=== PATIENT | female | born 1935 | race Caucasian/White ===

== ENCOUNTER → 2017-06-03 15:46 | Outpatient (CLI) | payer MEDICARE, SELFPAY ==
--- NOTE | 2017-06-03 15:54 | MM_ITS ---
MM Dig screening mamm BI w/CAD CAD Screening ORDERING PHYSICIAN : Yung Major MD PATIENT AGE: 82 years GENDER: Female COMPARISON: . Left mammogram from this facility 05/06/2016 & in March 2016 There is also right breast stereotactic biopsy performed May 2016 which positive for additional tumor Bilateral mammogram from [facility] January 2015 INDICATION: A 82-year-old Breast cancer on right. Follow-up right lumpectomy and radiation right breast cancer previous biopsy left breast Sister with breast cancer in her 80s postmenopausal TECHNIQUE: Standard CC and MLO images were obtained. R2 CAD reviewed. FINDINGS: RIGHT BREAST:Diffuse severe skin thickening reflect interval post radiation. Significant change in appearance since May 2016 . Areas of residual fibroglandular density in the right at the retroareolar region and lateral left breast observed. Right breast is smaller following prior surgical lumpectomy surgical LEFT BREAST:The patient had a stereotactic biopsy of the small grouping of calcifications in the upper outer quadrant of the left breast April 2016. A metallic marker is seen at this site.. Labeled X... Today there is a focal area of density at this biopsy site which is most likely related to the biopsy process.. it measures up to 11 x 7 mm width stellate margin & is best seen on cc view but again more likely reflect biopsy. Just posterior this, on one of the cc views, is additional questionable area labeled Y with mild architectural distortion question here as well.. This could also still be related biopsy, but given the combination of features particular in this patient, would suggest she return for spot CC rolled cc views of the left breast along with MLO spot view.. These should be performed the patient's convenience as we are basically establish a baseline for comparison at this area of architectural change in irregularity which I believe is more likely related to biopsy.. There is also mild diffuse accentuation of glandular elements throughout the left breast which may be related to therapy or mild edematous state . Possibly some the edema from the right breast radiation may span the chest mildly affecting left breast? . We again see numerous coarse calcifications throughout the breast most likely reflecting secretory calcifications routine follow-up of the adequate here IMPRESSION: LEFT BREAST. Previous stereotactic biopsy upper-outer quadrant.-This Associated with focal area of stellate density-most likely due to biopsy process itself. This area labeled X. However would recommend additional Spot Views Left Breast to further evaluate this area Labeled X as well also evaluate area of architectural irregularity just posterior to this on cc view Labeled Y. There seems to be overall increased density of fibroglandular elements throughout the left breast also noted, which may reflect current treatment vs mild edematous state? RIGHT BREAST interval lumpectomy & radiation since May 2016 mammogram exam. Now marked, pronounced diffuse skin thickening reflecting postradiation change.. No additional views required on right breast at this time. Routine Follow-up adequate on right BI-RADS Category: 0 Need Additional Imaging Evaluaiton. RECOMMENDED FOLLOW-UP: IMM - IMMEDIATE FOLLOW-UP RECOMMENDED Spot views upper quadrant left breast with septal ultrasound (A letter has been sent to the patient regarding results of the study.)
== END ==
PROVIDERS: Family Provider Family Medicine; PCP Family Medicine; Visit Provider Internal Medicine
DX: Z12.31 Encounter for screening mammogram for malignant neoplasm of breast (principal)
CPT/HCPCS: 77067

== ENCOUNTER → 2017-06-28 13:51 | Outpatient (CLI) | payer MEDICARE, SELFPAY ==
--- NOTE | 2017-06-28 13:59 | MM_ITS ---
MM Dig mamm DX unilat LT CAD CAD Screening ORDERING PHYSICIAN : Kadeem Mar MD PATIENT AGE: 82 years GENDER: Female COMPARISON: Previous mammograms: March 2016. April 2016 in recent screening study from June 03, 2017 INDICATION: Previous right breast cancer. Further evaluation of minimal density and calcifications TECHNIQUE: Standard CC and MLO images were obtained. R2 CAD reviewed. FINDINGS: LEFT BREAST: Slight progression of dense coarse calcifications seen at the left breast,. On these become more evident since 2017 although more likely benign there is progression and slight branching of one or 2 of the calcifications here along with some smaller calcifications in the same area.. Although these are more likely benign calcifications, Given this patient's increased risk to be cautious the stereotactic biopsy would be warranted. Follow-up in 6 months would be a alternative as I suspect these are more likely benign. There is metallic MicroMark or from previous stereotactic biopsy of small removed clustered of microcalcifications at the left breast.(These shown to be fibrocystic calcifications from that April 2016 stereotactic biopsy]. . There is some mild architectural distortion in this post biopsy which h becomes less evident on today's spot views. IMPRESSION: 1. Left breast Slight progression of fairly coarse calcifications left retroareolar region., & Extending towards upper outer quadrant.. These are most likely benign calcifications but they have shown slight progression with slight additional linear & a branching form.; Along with some tiny new calcifications as well. Although more likely benign would suggest stereotactic biopsy in this high-risk patient to be cautious to definitively evaluate. 2. Area of density at the previous biopsy site is less concerning, on these additional views. Follow up will be adequate for the post stereotactic biopsy density changes. BI-RADS Category: 4 minimal Suspicious Abnormality-Biopsy Considered RECOMMENDED FOLLOW-UP: BIO - BIOPSY RECOMMENDED Stereotactic of of progressive but more likely benign calcifications left breast. (A letter has been sent to the patient regarding results of the study.)
== END ==
PROVIDERS: Family Provider Family Medicine; PCP Family Medicine; Visit Provider Surgery
DX: R92.8 Other abnormal and inconclusive findings on diagnostic imaging of breast (principal); Z85.3 Personal history of malignant neoplasm of breast
CPT/HCPCS: 77065

== ENCOUNTER → 2017-07-28 10:03 | Outpatient (CLI) | payer MEDICARE, SELFPAY ==
--- NOTE | 2017-07-28 | MM_ITS ---
. . MM stereotactic loc LT Stereotactic biopsy left breast with clip placement . . Limited focused H&P: HISTORY: Lumpectomy and radiation right breast for 2017 breast cancer.. Recent mammogram showed slight Progressive of dense most likely benign but variable calcifications & in view of contralateral breast cancer biopsy suggested. Limited Physical Exam performed by Dr. Schaffer. Lungs: Clear.Heart: Regular rate and rhythm. Mental status: Slight Somnolent during but baseline at end of the exam as per staff and Daughter STEREOTACTIC BIOPSY LEFT BREAST, with clip placement: The patient was given 1 mg of Xanax, Lortab 5 mg, and analgesia and minor sedation. The patient was placed on the stereotactic table and the abnormality was localized in the most appropriate projection. The breast was prepped in the routine manner, with sterile prep and the overlying skin anesthetized. A 3 to 4 mm skin incision was performed and the 9 gauge sorus vacuum-assisted core biopsy needle was advanced to the region of the calcification. Pre-& post fire images were obtained. After adequate positioning relative to the calcifications was ensured, multiple biopsies were obtained in the region of the calcifications specifically. The core biopsies obtained were sent for specimen mammography. The needle was repositioned and additional calcifications were removed. A patient was becoming uncomfortable to this point and with fairly good sampling of calcifications additional calcifications were not pursued.. Significant Calcifications were indeed identified on the specimen mammogram, thus procedure was terminated. The patient was somewhat somnolent following procedure. She was very difficult to position in her baseline state and even more immediately post stereo biopsy. Suggest that the patient obtain a follow-up left mammogram in 6-8 months to demonstrate stability of these and other calcifications as well as other I believe stable densities left breast The patient tolerated the procedure well without complications. Specimen was sent for pathologic analysis.. Routine follow-up phone call to patient is to be performed as well. A tiny titanium nonferromagnetic MicroMark was positioned through the mammotome needle into the biopsy site. IMPRESSION: 1. Successful stereotactic vacuum-assisted core biopsy a significant portion of of the calcifications at left breast .. 2. Successful placement of a titanium metal MicroMark. 3. No noted complications. SPECIMEN RADIOGRAPH: The mammographically evident calcifications from the prior study are currently evident within the Raymond dish and within the specimens obtained during mammotome procedure. This is considered an adequate specimen and the procedure was terminated. IMPRESSION: Successful removal of adequate sampling of calcifications of concern. It pathology report demonstrates benign findings. ====== PATHOLOGY REPORT.: . Negative for atypical hyperplasia. Negative for malignancy Benign Fibrocystic changes with hyalinized fibrosis and microcalcifications Added note: Patient difficult to position, and questionably tolerated mammogram postbiopsy. Thus we opted not to pursue post biopsy mammography immediately poststereotactic thus suggest follow-up bilateral mammogram in 6-8 months: to further evaluate the postbiopsy clip and other features LEFT BREAST; and to further confirm stability at the post radiation postlumpectomy RIGHT BREAST.. --SUMMARY-- Today's Stereotactic biopsy removed significant portion of the irregular variable dense calcifications from lateral retroareolar region. Anticipated benign calcifications but with given history biopsy warranted Pathology report confirms benign findings/benign calcifications from today's
== END ==
PROVIDERS: Family Provider Family Medicine; PCP Family Medicine; Visit Provider Surgery
DX: R92.8 Other abnormal and inconclusive findings on diagnostic imaging of breast (principal)
CPT/HCPCS: 19081; 77065; 88305

== ENCOUNTER → 2018-02-07 15:02 | Outpatient (CLI) | payer MEDICARE, SELFPAY ==
--- NOTE | 2018-02-07 15:04 | MM_ITS ---
MM Dig mamm BI DX w/CAD Ordering Physician: Kadeem Mar MD Patient Age: 83 years: Female HISTORY: ITS.REASON: breast cancer . Stereotactic biopsy on left and june 2017 TECHNIQUE: Left breast CC and MLO views along with spot 90 degree, MLO and cc views. Also a right cc view included. COMPARISON :June 03, 2017 & July 28, 2017. FINDINGS Studies initially reviewed by Dr. Henley and now dictated by Dr. Schaffer. LEFT BREAST . The patient has had 2 previous stereotactic biopsy left breast. The most recent in June. Stable minimal density about older metallic marker towards superior left breast unchanged & can be followed. . The more recent june 2017 c placed a barrel-shaped metallic marker at the inferior aspect of the biopsy site disc below calcifications. No new findings. Some calcifications have been removed since May reflecting interval biopsy. There are some dense benign calcifications at a few possible secretory calcifications. . No significant new finding. On left. .. Bilateral mammogram in 6 months to resume annual schedule adequate. RIGHT BREAST Very prominent diffuse skin thickening at the right breast again noted & compatible with post radiation changes. No significant new findings stable benign-appearing calcification lateral right breast. Only a single cc view was performed on the right breast today for some reason not stated. Thus Suggest resuming complete annual bilateral mammogram in 6 months IMPRESSION: 1. LEFT BREAST.. No significant new findings . Two Previous percutaneous biopsy sites noted Slight Decreased number of these these dense and benign-appearing calcifications including possible secretory calcifications Central portion breast. Subsequent to the June2017 biopsy. 2. RIGHT BREAST. A limited single cc view right breast performed today. Prominent diffuse skin thickening reflecting postradiation changes. No new findings versus May 2017. . BI-RADS 2 stable benign appearing observations RECOMMEND: bilateral mammogram 6 months to resume annual mammogram schedule.
== END ==
PROVIDERS: PCP Family Medicine; Visit Provider Surgery
DX: C50.911 Malignant neoplasm of unspecified site of right female breast (principal)
CPT/HCPCS: 77066

== ENCOUNTER → 2018-08-29 13:29 | Outpatient (CLI) | payer MEDICARE, SELFPAY ==
--- NOTE | 2018-08-29 14:40 | MM_ITS ---
MM Dig screening mamm BI w/CAD CAD Screening COMPARISON: Digital mammograms with CAD 02/07/2018 and 03/09/2016 INDICATION: There is a history of recent lumpectomy right breast with follow-up radiation therapy. There is a history of breast cancer patient's sister diagnosed in her 80s. TECHNIQUE: Standard CC and MLO images were obtained. R2 CAD reviewed. FINDINGS: The right breast is smaller than left showing marked and diffuse skin thickening both findings consistent with previous lumpectomy and follow-up radiation therapy. Scattered fibronodular densities are seen throughout both breasts. Scattered benign appearing microtest stations in each breast. There is no new or suspicious lesion in either breast. There is a fatty replaced node left axilla. IMPRESSION: Stable post left lumpectomy and radiation changes right breast and stable heterogenic breast density left breast BI-RADS Category: 2 Benign Finding(s) RECOMMENDED FOLLOW-UP: 1YR - 1 YEAR FOLLOW-UP (A letter has been sent to the patient regarding results of the study.)
== END ==
PROVIDERS: PCP Family Medicine; Visit Provider Surgery
DX: Z12.31 Encounter for screening mammogram for malignant neoplasm of breast (principal)
CPT/HCPCS: 77067

== ENCOUNTER 2021-04-20 13:23 | Observation (INO) | payer MEDICARE, SELFPAY ==
[2021-04-20] VITALS (10 sets, daily range): BP systolic 125–160; BP diastolic 51–77; PULSE 53–102; RESP 15–20; TEMP 36.4–36.8; O2SAT 90–100; BMI 26.6; BMI 25.8; BMI 20.6
--- NOTE | 2021-04-20 13:36 | CT_ITS ---
PROCEDURE INFORMATION: Exam: CT Cervical Spine Without Contrast Exam date and time: 04/20/2021 1:36 PM Age: 86 years old Clinical indication: Injury or trauma; Fall; Blunt trauma TECHNIQUE: Imaging protocol: Computed tomography images of the cervical spine without contrast. Radiation optimization: All CT scans at this facility use at least one of these dose optimization techniques: automated exposure control; mA and/or kV adjustment per patient size (includes targeted exams where dose is matched to clinical indication); or iterative reconstruction. COMPARISON: [facility] CT CHEST W/ CONTRAST 06/03/2016 10:29 AM FINDINGS: Bones/joints: 2 mm retrolisthesis of C3 on C4. The facet joints demonstrate mild degenerative hypertrophy and sclerosis. There is no evidence of acute fracture. Discs/Spinal canal/Neural foramina: The cervical spine demonstrates mild degenerative changes at multiple levels. Disc space narrowing and bilateral neural foraminal narrowing noted at C3-C4, C5-C6, C6-C7 and C7-T1. Thyroid: 1.3 cm hypodense nodule present within the right lobe of the thyroid. Further evaluation with thyroid ultrasound is recommended. Lungs: Lung apices are normal. Vasculature: The vasculature demonstrates diffuse mild atherosclerotic calcification. Soft tissues: Unremarkable. IMPRESSION: 1. 2 mm retrolisthesis of C3 on C4. 2. The cervical spine demonstrates mild degenerative changes at multiple levels. 3. No evidence of acute fracture. 4. 1.3 cm hypodense nodule present within the right lobe of the thyroid. Further evaluation with thyroid ultrasound is recommended. COMMENTS: Consistent with the [employer]'s Incidental Findings Committee white paper (J Am Yamila Radiol 2015): In patients aged 35 years and older with an incidental thyroid nodule equal to or greater than 1.[address], MRI or extrathyroidal US, further evaluation with dedicated thyroid US is recommended for patients with normal life expectancy and without comorbidities. For smaller nodules without suspicious features, no further evaluation or follow up is recommended.
--- NOTE | 2021-04-20 13:36 | CT_ITS ---
PROCEDURE INFORMATION: Exam: CT Head Without Contrast Exam date and time: 04/20/2021 1:36 PM Age: 86 years old Clinical indication: Injury or trauma; Fall; Blunt trauma (contusions or hematomas) TECHNIQUE: Imaging protocol: Computed tomography of the head without contrast. Radiation optimization: All CT scans at this facility use at least one of these dose optimization techniques: automated exposure control; mA and/or kV adjustment per patient size (includes targeted exams where dose is matched to clinical indication); or iterative reconstruction. COMPARISON: No relevant prior studies available. FINDINGS: Brain: Age-related atrophy and chronic white matter ischemic changes, with no evidence of an acute intracranial abnormality. No hemorrhage, mass effect or midline shift. Cerebral ventricles: No ventriculomegaly. Paranasal sinuses: Visualized sinuses are unremarkable. No fluid levels. Mastoid air cells: Visualized mastoid air cells are well aerated. Bones/joints: Right to left nasal septal deviation. Soft tissues: No acute changes IMPRESSION: 1. Age-related atrophy and chronic white matter ischemic changes, with no evidence of an acute intracranial abnormality. 2. No hemorrhage, mass effect or midline shift.
--- NOTE | 2021-04-20 13:36 | XR_ITS ---
PROCEDURE INFORMATION: Exam: XR Chest Exam date and time: 04/20/2021 1:36 PM Age: 86 years old Clinical indication: Injury or trauma; Fall; Blunt trauma (contusions or hematomas) TECHNIQUE: Imaging protocol: XR of the chest. Views: 1 view. COMPARISON: CR CXR1 CHEST-PORTABLE 06/30/2016 10:44 AM FINDINGS: Tubes, catheters and devices: Surgical clips overlie the right axilla. Lungs: Mild opacities in the right upper lobe and both bases may represent atelectasis or contusions.. Pleural spaces: Unremarkable. No pleural effusion. No pneumothorax. Heart/Mediastinum: Unremarkable. No cardiomegaly. Bones/joints: No definite rib fracture. IMPRESSION: 1. Mild opacities in the right upper lobe and both bases may represent atelectasis or contusions.. 2. No definite rib fracture. Chest CT may be helpful if clinically indicated
--- NOTE | 2021-04-20 13:45 | HMH.EDGENADL ---
ED Disposition Clinical Impression: Elevated troponin, Thyroid nodule Fall Qualifiers: Encounter type: initial encounter Qualified Code(s): W19.XXXA - Unspecified fall, initial encounter Tibial plateau fracture Qualifiers: Encounter type: initial encounter Fracture type: closed Laterality: right Qualified Code(s): S82.141A - Displaced bicondylar fracture of right tibia, initial encounter for closed fracture Breast mass Qualifiers: Laterality: right Breast mass location: unspecified quadrant Qualified Code(s): N63.10 - Unspecified lump in the right breast, unspecified quadrant Disposition: Admitted as Observation Condition on Discharge: Fair - Critical Care Critical Care Time: No Attestation: On 04/20/21, the high probability of a clinically significant, sudden or life threatening deterioration of the following system(s) required my full and direct attention, intervention and personal management. The time I documented below is in addition to time spent performing reported procedures but includes the following listed in this critical care notation. Medical Decision Making - Josh Inquiry Pt receiving controlled substance: Yes Josh was queried for this patient: Yes Risks and benefits of using a controlled substance: were not discussed with pt by me Vital Signs: 04/20/21 13:24 04/20/21 15:35 04/20/21 16:10 Temperature 97.6 F Temperature Source Oral Pulse Rate 86 87 Pulse Rate [Left Radial] 53 L Respiratory Rate 18 15 15 Blood Pressure 160/77 H 151/68 H Blood Pressure [Right Arm] 127/53 L Blood Pressure Mean 104 99 Blood Pressure Mean [Right Arm] 77 Blood Pressure Source [Right Arm] Automatic Cuff Blood Pressure Position [Right Arm] Sitting 02 Sat by Pulse Oximetry 100 96 95 Oxygen Delivery Method Room Air - Lab Data Lab Results 04/20/21 15:02: WBC 7.0, RBC 5.11, Hgb 14.2, Hct 43.2, MCV 84.6, MCH 27.7, MCHC 32.7, RDW 13.8, Plt Count 187, MPV 8.8, Neut % (Auto) 87.8 H, Lymph % (Auto) 6.3 L, Shannon % (Auto) 5.1, Eos % (Auto) 0.6, Baso % (Auto) 0.2, Neut # (Auto) 6.1, Lymph # (Auto) 0.4 L, Shannon # (Auto) 0.4, Eos # (Auto) 0.0, Baso # (Auto) 0.0, Total Counted 100, Neutrophils % (Manual) 83 H, Lymphocytes % (Manual) 10, Monocytes % (Manual) 5, Basophils % (Manual) 2.0 H, Platelet Estimate Normal 04/20/21 15:02: Sodium 135 L, Potassium 3.8, Chloride 102, Carbon Dioxide 29, Anion Gap 7.8, BUN 30 H, Creatinine 0.50 L, Estimated Creat Clear 47, Estimated GFR 117, Est GFR ( Amer) 142, Glucose 108 H, Calcium 8.4, Total Bilirubin 1.1, AST 61 H, ALT 25, Alkaline Phosphatase 105, Troponin I 0.12 H, Total Protein 6.8, Albumin 4.2, Globulin 2.6, Albumin/Globulin Ratio 1.6 04/20/21 15:09: SARS-CoV-2 (PCR) Not detected, Influenza A Untype (PCR) Not detected, Influenza Type B (PCR) Not detected 04/20/21 15:38: Urine Color Yellow, Urine Appearance Clear, Urine pH 5.5, Ur Specific [place] >= 1.030, Urine Protein Negative, Urine Glucose (UA) Negative, Urine Ketones 1+, Urine Blood Negative, Urine Nitrate Negative, Urine Bilirubin Negative, Urine Urobilinogen 0.2, Ur Leukocyte Esterase Negative, Urine RBC None, Urine WBC None, Ur Squamous Epith Cells None, Urine Bacteria None 04/20/21 17:00: Troponin I 0.10 H Result diagrams: 04/20/21 15:02 04/20/21 15:02 Orders (Tests/Meds): ED MEDICATIONS Generic Name Dose Route Start Last Admin Trade Name Freq PRN Reason Stop Dose Admin Sodium Chloride 1,000 mls @ 75 mls/hr 04/20/21 17:30 Sod Chlor 0.9% 1000ml Bag IV 05/20/21 17:29 .[id number] GELA Discontinued Medications Generic Name Dose Route Start Last Admin Trade Name Freq PRN Reason Stop Dose Admin Morphine Sulfate 2 mg 04/20/21 15:44 04/20/21 15:45 Morphine 2mg/Ml Syringe IV 04/20/21 15:45 2 mg ONCE ONE Administration Ondansetron HCl 4 mg 04/20/21 15:43 04/20/21 15:45 Ondansetron 4mg/2ml Vial IV 04/20/21 15:44 4 mg ONCE ONE Administration ORDERS Category Date
--- NOTE | 2021-04-20 13:52 | XR_ITS ---
PROCEDURE INFORMATION: Exam: XR Right Hip Exam date and time: 04/20/2021 1:52 PM Age: 86 years old Clinical indication: Injury or trauma; Fall; Blunt trauma (contusions or hematomas); Right; Hip TECHNIQUE: Imaging protocol: XR Right hip. Views: 2 or 3 views hip with pelvis when performed. COMPARISON: [facility] CT ABD PELVIS W/ CONTRAST 06/03/2016 10:29 AM FINDINGS: Bones/joints: Degenerative changes in both hips and lumbar spine. There is no evidence of acute fracture.There is no evidence of malalignment or dislocation. Soft tissues: Unremarkable. Organs: Calcifications in the pelvis may represent calcified fibroids IMPRESSION: There is no evidence of acute fracture.There is no evidence of malalignment or dislocation.
--- NOTE | 2021-04-20 13:55 | XR_ITS ---
PROCEDURE INFORMATION: Exam: XR Right Knee Exam date and time: 04/20/2021 1:55 PM Age: 86 years old Clinical indication: Injury or trauma; Fall; Blunt trauma; Knee; Right; Additional info: Fall, bruised knee TECHNIQUE: Imaging protocol: XR Right knee. Views: 3 views. COMPARISON: No relevant prior studies available. FINDINGS: Bones/joints: Mild Tricompartmental joint space narrowing and osteophyte formation consistent with degenerative changes. Mild impaction of the medial tibial plateau. If acute fracture is suspected, recommend CT a. Soft tissues: Normal. IMPRESSION: 1. Mild Tricompartmental joint space narrowing and osteophyte formation consistent with degenerative changes. 2. Mild impaction of the medial tibial plateau. If acute fracture is suspected, recommend CT
--- NOTE | 2021-04-20 15:06 | ECG_ITS ---
APPROVED REPORT Exam: Resting ECG HR:91 bpm ECG Measurements Heart Rate 91 AXES OK 219 P 41 QRSd 96 QRS 19 QT 378 T 44 QTc 427 Conclusion SINUS RHYTHM WITH FIRST DEGREE AV BLOCK LEFT VENTRICULAR HYPERTROPHY AND ST-T CHANGE [VOLTAGE CRITERIA PLUS ST/T ABNORMALITY] ABNORMAL ECG UNCONFIRMED REPORT Electronically signed by : Wyatt Quiros MD 04/21/2021 18:00:03
[2021-04-20 15:16] LABS: Coronavirus 19, PCR Not Detected (NotDetected); Influenza A, PCR Not Detected (NotDetected); Influenza B, PCR Not Detected (NotDetected)
[2021-04-20 15:22] LABS: Chloride 102 mmol/L (98-107)
--- NOTE | 2021-04-20 15:22 | CT_ITS ---
PROCEDURE INFORMATION: Exam: CT Right Lower Extremity Without Contrast, Hip Exam date and time: 04/20/2021 3:22 PM Age: 86 years old Clinical indication: Pain; Hip; Right; Additional info: Hip pain after fall TECHNIQUE: Imaging protocol: CT of the Right lower extremity without contrast was performed. Exam focused on the hip. 3D rendering (Not supervised by radiologist): MIP and/or 3D reconstructed images were created by the technologist. Radiation optimization: All CT scans at this facility use at least one of these dose optimization techniques: automated exposure control; mA and/or kV adjustment per patient size (includes targeted exams where dose is matched to clinical indication); or iterative reconstruction. COMPARISON: CR XR HIP RT 2-3V W/PELVIS 04/20/2021 2:17 PM FINDINGS: Bones/joints: There is no evidence of acute fracture.There is no evidence of malalignment or dislocation. Soft tissues: Mild inflammatory changes in the subcutaneous fat lateral to the right hip IMPRESSION: There is no evidence of acute fracture.There is no evidence of malalignment or dislocation.
--- NOTE | 2021-04-20 15:22 | CT_ITS ---
PROCEDURE INFORMATION: Exam: CT Right Lower Extremity Without Contrast, Knee Exam date and time: 04/20/2021 3:22 PM Age: 86 years old Clinical indication: Injury or trauma; Fall; Blunt trauma; Knee; Right; Injury date: 04/20/21; Additional info: Possible tibial plateau FX on xray TECHNIQUE: Imaging protocol: CT of the Right lower extremity without contrast was performed. Exam focused on the knee. 3D rendering (Not supervised by radiologist): MIP and/or 3D reconstructed images were created by the technologist. Radiation optimization: All CT scans at this facility use at least one of these dose optimization techniques: automated exposure control; mA and/or kV adjustment per patient size (includes targeted exams where dose is matched to clinical indication); or iterative reconstruction. COMPARISON: CT HIP RT WO CON 04/20/2021 3:46 PM FINDINGS: Bones/joints: Lucency through the medial aspect of the medial tibial plateau. Series 3, image 62. This may represent minimal acute avulsion fracture. Additional longitudinal lucencies seen in the medial tibial plateau (series 1001, image 34-36. ) These lucencies may represent nondisplaced fractures. . Joint space narrowing in the medial compartment consistent with significant degenerative changes. Mild suprapatellar joint effusion. Mild impaction of the medial tibial plateau Soft tissues: Normal. IMPRESSION: 1. Lucency through the medial aspect of the medial tibial plateau. Series 3, image 62. This may represent minimal acute avulsion fracture. 2. Additional longitudinal lucencies seen in the medial tibial plateau (series 1001, image 34-36. ) These lucencies may represent nondisplaced fractures. . 3. Joint space narrowing in the medial compartment consistent with significant degenerative changes. 4. Mild suprapatellar joint effusion.
[2021-04-20 15:23] LABS: Potassium 3.8 mmoL/L (3.5-5.1); Sodium 135 mmol/L (136-145)
[2021-04-20 15:25] LABS: Alanine Aminotransferase 25 U/L (12-78); Aspartate Amino Transferase 61 U/L (14-36); Blood Urea Nitrogen 30 mg/dl (7-17); Creatinine Clearance Estimated 47 mL/min (50-200); Estimated Glomerular Filt Rate 117 ml/min (>60); GFR (African American) 142 ML/MIN (>60)
[2021-04-20 15:26] LABS: Albumin Level 4.2 g/dl (3.5-5.0); Albumin/Globulin Ratio 1.6 (1.1-1.8); Alkaline Phosphatase 105 U/L (38-126); Anion Gap 7.8 mEq/L (5-15); Bilirubin,Total 1.1 mg/dl (0.2-1.3); Calcium 8.4 mg/dl (8.4-10.2); Carbon Dioxide 29 mmol/L (22.0-30.0); Globulin 2.6 g/dL (1.3-3.2); Glucose 108 mg/dl (74-100); Total Protein,Serum 6.8 g/dl (6.3-8.2)
--- NOTE | 2021-04-20 15:26 | CT_ITS ---
PROCEDURE INFORMATION: Exam: CT Chest Without Contrast; Diagnostic Exam date and time: 04/20/2021 3:26 PM Age: 86 years old Clinical indication: Shortness of breath and other: Saw some signs on xray; Additional info: Possible pneumonia// patient had a fall today TECHNIQUE: Imaging protocol: Diagnostic computed tomography of the chest without contrast. Radiation optimization: All CT scans at this facility use at least one of these dose optimization techniques: automated exposure control; mA and/or kV adjustment per patient size (includes targeted exams where dose is matched to clinical indication); or iterative reconstruction. COMPARISON: [facility] CT CHEST W/ CONTRAST 06/03/2016 10:29 AM FINDINGS: Thyroid: Nodule in the right lobe of the thyroid 15 mm. Recommend thyroid ultrasound. Lungs: Mild opacities in the right middle lobe and lingula and both lower lobes may represent minimal atelectasis or pneumonia.. Pleural spaces: Unremarkable. No pneumothorax. No pleural effusion. Heart: Small pericardial effusion. Cardiomegaly Aorta: Unremarkable. No aortic aneurysm. Lymph nodes: Unremarkable. No enlarged lymph nodes. Bones/joints: Compression fracture of unknown age in the lower thoracic spine Soft tissues: 3.5 x 2 cm spiculated mass in the soft tissues of the right breast. Series 3 image 43. It is adjacent to surgical clips. It was not present in 2017. Findings most worrisome for recurrent tumor. Differential includes infection and hematoma. IMPRESSION: 1. 3.5 x 2 cm spiculated mass in the soft tissues of the right breast. Series 3 image 43. It is adjacent to surgical clips. It was not present in 2017. Findings most worrisome for recurrent tumor. Differential includes infection and hematoma. 2. Mild opacities in the right middle lobe and lingula and both lower lobes may represent minimal atelectasis or pneumonia.. 3. Nodule in the right lobe of the thyroid 15 mm. Recommend thyroid ultrasound. COMMENTS: Consistent with the [employer]'s Incidental Findings Committee white paper (J Am Yamila Radiol 2015): In patients aged 35 years and older with an incidental thyroid nodule equal to or greater than 1.[address], MRI or extrathyroidal US, further evaluation with dedicated thyroid US is recommended for patients with normal life expectancy and without comorbidities. For smaller nodules without suspicious features, no further evaluation or follow up is recommended.
[2021-04-20 15:30] LABS: Basophils % 0.2 % (0.1-2.0); Eosinophils % 0.6 % (0.1-12.0); Hematocrit 43.2 % (37.0-47.0); Hemoglobin 14.2 g/dL (12.2-16.2); Lymphocytes # 0.4 K/mm3 (0.7-4.5); Lymphocytes % 6.3 % (10-50); Mean Corpuscular HGB Conc 32.7 g/dL (31.8-35.4); Mean Corpuscular Hemoglobin 27.7 pg (27.0-31.2); Mean Corpuscular Volume 84.6 fl (81-99); Mean Platelet Volume 8.8 fl (7.4-10.4); Monocytes # 0.4 K/mm3 (0.1-1.0); Monocytes % 5.1 % (1.7-9.3); Neutrophils # 6.1 K/mm3 (1.8-7.8); Neutrophils % 87.8 % (37.0-80.0); Platelet Count 187 K/mm3 (142-424); Red Blood Count 5.11 M/mm3 (4.20-5.40); Red Cell Distribution Width 13.8 % (11.5-17.5)
--- NOTE | 2021-04-20 15:37 | PC.NURSE ---
speaking with theater education teacher ortho regarding this patient.
[2021-04-20 15:38] LABS: MANUAL DIFFERENTIAL MANUAL DIFFERENTIAL (MANUAL DIFF); Troponin I 0.12 ng/ml (0.00-0.034)
--- NOTE | 2021-04-20 15:40 | PC.NURSE ---
pt over to CT scan at this time.
[2021-04-20 15:42] LABS: Microscopic, Urine URINE MICROSCOPIC (MICROSCOPIC)
--- NOTE | 2021-04-20 15:42 | PC.NURSE ---
Dr Nicholas talking to Dr Bean about patient. Collection Systems Worker called for admission.
--- NOTE | 2021-04-20 16:07 | PC.NURSE ---
pt is back from CT scan
[2021-04-20 16:52] LABS: Appearance,Urine CLEAR (Clear); Blood, Urine Negative (Negative); Color,Urine YELLOW (Yellow); Glucose,Urine (UA) Negative (Negative); Ketones,Urine 1+ (Negative); Leukocyte Esterase,Urine Negative (Negative); Nitrate,Urine Negative (Negative); PH,Urine 5.5 (5.0-8.5); Protein,Urine Negative (Negative); Specific Gravity, Urine >= 1.030 (1.005-1.030); Urobilinogen,Urine 0.2 EU/dl (0.2)
--- NOTE | 2021-04-20 16:54 | PC.NURSE ---
lab is bedside
[2021-04-20 16:57] LABS: Lymphocytes % 10 % (10-50); Monocytes % 5 % (2-9); Neutrophils % 83 % (42-76); Platelet Estimate Normal; Total Cells Counted 100
[2021-04-20 16:59] LABS: Bilirubin,Urine Negative (Negative)
--- NOTE | 2021-04-20 17:22 | PC.NURSE ---
Dr. Bean was paged at this time.
--- NOTE | 2021-04-20 17:24 | PC.NURSE ---
Dr. Bean returned call to the ED and is speaking with Dr. Nicholas at this time.
--- NOTE | 2021-04-20 17:34 | PC.NURSE ---
called house about inpatient admission
--- NOTE | 2021-04-20 18:02 | PC.NURSE ---
Ice water was given to the patient upon her request and Dr. Yu HUDSON
--- NOTE | 2021-04-20 18:14 | PC.NURSE ---
Report called to Vibha BAL
--- NOTE | 2021-04-20 18:21 | PC.NURSE ---
Med surg staff down here to transport patient to her inpatient room.
--- NOTE | 2021-04-20 18:58 | PC.NURSE ---
pt has been admitted to r tibia fx and elevated troponins. She is alert but not oriented. Hx of dementia which daughter states has recently worsened. Pt has no pcp and has not been to the doctor in a long time per daughter. She has leasions under r breast. briusing to ble. pulses are strong in arjun feet. f/c patent. Per daughter she has no major health issues except for the breast cancer which she still receives po chemo for. per daughter pt does not beloieve in any type of vaccines. Daughter states she is not POA but she is her only family.
--- NOTE | 2021-04-20 19:09 | PC.WOUNDNOTE ---
DRY FLAKY SKIN BILATERAL FEET SCATTERED BRUISING NOTED BLE DRYNESS/REDNESS NOTED TO ABDOMINAL FOLD DRYNESS NOTED TO BILATERAL BREAST DARK LESION NOTED TO THE RT BREAST
--- NOTE | 2021-04-20 19:55 | HMH.ACPN2 ---
Internal Medicine - PN: Subj *Date: 04/20/21 *Time: 19:55 Interval history: This 86-year-old white female was admitted through the emergency room. According to her daughter's report to the ER physician she had a fall today. There was an injury to the right knee and some bruising. Her daughter felt that she was not mentally the same as she usually is. In the emergency room her evaluations showed a possible nondisplaced tibial plateau fracture on the right. The main reason she was admitted however was that her troponin was slightly elevated. The patient has not had complaints of shortness of breath or chest pain. I spent some time talking to her this evening but she is not able to give a good history. She is not even able to tell me where she lives. When I took the bed clothes down to check her knee she was concerned that the people on the TV set could see her. Exam Vital signs and Labs for Last 24 Hours: Temp Pulse Resp BP Pulse Ox 97.5 F L 97 H 16 132/60 90 L 04/20/21 18:41 04/20/21 18:41 04/20/21 18:41 04/20/21 18:41 04/20/21 18:41 Laboratory Results - last 24 hr 04/20/21 15:02: WBC 7.0, RBC 5.11, Hgb 14.2, Hct 43.2, MCV 84.6, MCH 27.7, MCHC 32.7, RDW 13.8, Plt Count 187, MPV 8.8, Neut % (Auto) 87.8 H, Lymph % (Auto) 6.3 L, [place] % (Auto) 5.1, Eos % (Auto) 0.6, Baso % (Auto) 0.2, Neut # (Auto) 6.1, Lymph # (Auto) 0.4 L, [place] # (Auto) 0.4, Eos # (Auto) 0.0, Baso # (Auto) 0.0, Total Counted 100, Neutrophils % (Manual) 83 H, Lymphocytes % (Manual) 10, Monocytes % (Manual) 5, Basophils % (Manual) 2.0 H, Platelet Estimate Normal 04/20/21 15:02: Sodium 135 L, Potassium 3.8, Chloride 102, Carbon Dioxide 29, Anion Gap 7.8, BUN 30 H, Creatinine 0.50 L, Estimated Creat Clear 47, Estimated GFR 117, Est GFR ( Amer) 142, Glucose 108 H, Calcium 8.4, Total Bilirubin 1.1, AST 61 H, ALT 25, Alkaline Phosphatase 105, Troponin I 0.12 H, Total Protein 6.8, Albumin 4.2, Globulin 2.6, Albumin/Globulin Ratio 1.6 04/20/21 15:09: SARS-CoV-2 (PCR) Not detected, Influenza A Untype (PCR) Not detected, Influenza Type B (PCR) Not detected 04/20/21 15:38: Urine Color Yellow, Urine Appearance Clear, Urine pH 5.5, Ur Specific [place] >= 1.030, Urine Protein Negative, Urine Glucose (UA) Negative, Urine Ketones 1+, Urine Blood Negative, Urine Nitrate Negative, Urine Bilirubin Negative, Urine Urobilinogen 0.2, Ur Leukocyte Esterase Negative, Urine RBC None, Urine WBC None, Ur Squamous Epith Cells None, Urine Bacteria None 04/20/21 17:00: Troponin I 0.10 H I & O for Last 24 hours: Intake & Output 04/18/21 04/19/21 04/20/21 04/21/21 11:59 11:59 11:59 11:59 Weight 124 lb - *Routine HEENT Exam Head: Present: normocephalic Eye: Present: EOMI, PERRL ENT: Present: mucous membranes moist - *Routine Neck Exam Present: supple. Absent: lymphadenopathy - *Routine Respiratory Exam Present: CTA bilaterally - *Routine Cardiovascular Exam Present: RRR - *Routine Abdominal Exam Present: soft, normoactive bowel sounds. Absent: tenderness - *Routine Extremities Exam Present: edema (1+. There is tenderness of the right knee and ecchymosis.) - *Routine Skin Exam Present: warm. Absent: rash - *Routine Neurological Exam Present: alert Assessment and Plan (1) Elevated troponin Status: Acute Category: Medical Code(s): R77.8 - Other specified abnormalities of plasma proteins (2) Tibial plateau fracture Status: Acute Qualifiers: Encounter type: initial encounter Fracture type: closed Laterality: right Qualified Code(s): S82.141A - Displaced bicondylar fracture of right tibia, initial encounter for closed fracture Category: Medical Code(s): S82.143A - Displaced bicondylar fracture of unspecified tibia, initial encounter for closed fracture (3) Dementia Status: Acute Category: Medical Code(s): F03.90 - Unspecified dementia without behavioral disturbance (4) Breast mass Status: Acute Qualifiers: Laterali
[2021-04-20 20:57] LABS: Troponin I 0.09 ng/ml (0.00-0.034)
[2021-04-21] VITALS (10 sets, daily range): BP systolic 117–143; BP diastolic 51–60; PULSE 60–100; RESP 16–20; TEMP 36.7–37.3; O2SAT 90–96; BMI 21.2
--- NOTE | 2021-04-21 06:07 | PC.NURSE ---
Pt alert and oriented x 2. Pt has denied having pain this shift. IV infusing per order. Cantu cath patent, voiding dark urine. See I&O. Pt has multiple skin issues, see nursing wound note. Troponins trending down. Pt is being monitored via tele - sinus w/ first degree av block. No acute episodes or complaints this shift. Pt has a cardiology and ortho consult ordered. Bed alarm on and call light in reach.
--- NOTE | 2021-04-21 07:35 | HMH.CNCARD ---
History of Present Illness Consult date: 04/21/21 Requesting physician: Jenni Bean Chief complaint: elevated troponin, fall with femur fracture Additional Medical History:: 1. Hypertension 2. Dementia 3. History of right breast cancer status post right lumpectomy 4. Status post bilateral carotid endarterectomy History of present illness: History obtained from daughter. She fell this morning when she was sitting in a chair with a tray in her lap. Afterwards complained of right hip pain. Daughter also states that she is not acting her usual self. She just pills with her breakfast, which is unusual. Also she is not talking or interacting like she normally would. He says she has not recently been ill. No recent URI or gastrointestinal symptoms. No other complaints of pain prior to this incident. No known exposure to any illnesses, including COVID-19. She is not vaccinated against COVID-19. The above per Dr. Nicholas in ER. This 86-year-old white female was admitted through the emergency room. According to her daughter's report to the ER physician she had a fall today. There was an injury to the right knee and some bruising. Her daughter felt that she was not mentally the same as she usually is. In the emergency room her evaluations showed a possible nondisplaced tibial plateau fracture on the right. The main reason she was admitted however was that her troponin was slightly elevated. The patient has not had complaints of shortness of breath or chest pain. I spent some time talking to her this evening but she is not able to give a good history. She is not even able to tell me where she lives. When I took the bed clothes down to check her knee she was concerned that the people on the TV set could see her. The above per Dr. Bean 86-year-old white female admitted for fall with subsequent displaced tibial plateau fracture, elevated troponins and possible new mass in the right breast and thyroid abnormality. Patient is unaware of where she is, what year it is or what month it is. She couldn't even tell me her birthdate. Patient denies any chest pain at this time. Cardiology consulted for elevated troponins in the setting of fall with fracture. Echocardiogram was performed yesterday the results are pending at this time. EKG is sinus rhythm with first-degree AV block and nonspecific ST-T changes indicative of LVH. [facility] History Medical History: Reports:: Cancer, Hypertension Denies:: Diabetes Mellitus Type 1, Diabetes Mellitus Type 2 *Have you ever received a pneumonia vaccine?: No *Have you received a flu vaccine this season?: No Other Medical History: Reports: Other Laterality Cases: Right: Lumpectomy, Bilateral: Breast Biopsy, Carotid Endarterectomy Other Surgeries: Yes: Cancer Surgery, Colonoscopy, Other - *Social History Last grade of school completed: 4th or less Smoking Status: Never smoker Alcohol Intake: never Substance Use Type: denies use *Occupational Status:: disabled *Travel in the last 8 weeks: None Family Hx:: No significant family history Meds Home Medications Medication Instructions Recorded Confirmed Type anastrozole 1 mg tablet 1 mg PO DAILY 01/12/18 04/20/21 History Furosemide [Furosemide 20mg Tab*] 20 mg PO DAILY 04/20/21 04/20/21 History Metoprolol Tartrate [Lopressor 25 mg PO BID 04/20/21 04/20/21 History 25mg tablet] Allergies Allergy/AdvReac Type Severity Reaction Status Date / Time HAFSA Inhibitors Allergy Rash Verified 03/28/19 11:06 Exam Vital signs and Labs for Last 24 Hours: Temp Pulse Resp BP Pulse Ox 98.1 F 74 18 132/60 96 04/21/21 04:00 04/21/21 04:00 04/21/21 04:00 04/21/21 04:00 04/21/21 04:00 Laboratory Results - last 24 hr 04/20/21 15:02: WBC 7.0, RBC 5.11, Hgb 14.2, Hct 43.2, MCV 84.6, MCH 27.7, MCHC 32.7, RDW 13.8, Plt Count 187, MPV 8.8, Neut % (Auto) 87.8 H, Lymph % (Auto) 6.3 L, [place] % (Auto) 5.1, Eos % (Auto) 0.6, Baso % (Auto) 0.2, Neut # (Auto) 6.1,
[2021-04-21 07:40] LABS: Chloride 104 mmol/L (98-107); Sodium 133 mmol/L (136-145)
[2021-04-21 07:43] LABS: Blood Urea Nitrogen 22 mg/dl (7-17); Carbon Dioxide 27 mmol/L (22.0-30.0); Creatinine Clearance Estimated 37 mL/min (50-200); Estimated Glomerular Filt Rate 117 ml/min (>60); GFR (African American) 142 ML/MIN (>60)
[2021-04-21 07:44] LABS: Calcium 7.9 mg/dl (8.4-10.2); Glucose 94 mg/dl (74-100)
--- NOTE | 2021-04-21 08:19 | HMH.PHAVTE ---
[facility] VTE Monitoring - Patient Demographics Admission date: 04/20/21 Report Date: 04/21/21 Time: 08:19 Allergies/Adverse Reactions: Patient Allergies HAFSA Inhibitors Allergy (Verified 03/28/19 11:06) Rash Height: 1.65 m Weight: 57.652 kg Patient Problems: Current Active Problems Elevated troponin (Acute) Fall (Acute) Tibial plateau fracture (Acute) Breast mass (Acute) Thyroid nodule (Acute) Dementia (Acute) - VTE Risk Labs: VTE Related Lab Results Hgb 14.2 g/dL (12.2-16.2) 04/20/21 15:02 Hct 43.2 % (37.0-47.0) 04/20/21 15:02 Plt Count 187 K/mm3 (142-424) 04/20/21 15:02 BUN 22 mg/dl (7-17) H D 04/21/21 05:39 Creatinine 0.50 mg/dl (0.52-1.04) L 04/21/21 05:39 Estimated Creat Clear 37 mL/min (50-200) 04/21/21 05:39 - Prophylaxis VTE Prophylaxis Ordered?: Yes Types of VTE Prophylaxis: TEDS Knee High Location of Applied Device: Bilateral Lower Extremeties
--- NOTE | 2021-04-21 08:55 | HMH.HP ---
*Admission Date: 04/20/21 *Chief complaint: Fall, elevated troponin *History of present illness: This 86-year-old white female was admitted through the emergency room. According to her daughter's report to the ER physician she had a fall today. There was an injury to the right knee and some bruising. Her daughter felt that she was not mentally the same as she usually is. In the emergency room her evaluations showed a possible nondisplaced tibial plateau fracture on the right. The main reason she was admitted however was that her troponin was slightly elevated. The patient has not had complaints of shortness of breath or chest pain. I spent some time talking to her this evening but she is not able to give a good history. She is not even able to tell me where she lives. When I took the bed clothes down to check her knee she was concerned that the people on the TV set could see her. The patient is awake this morning, but she is asking to see her mother. She obviously does not mentate well. [facility] History Medical History: Reports:: Cancer, Hypertension Denies:: Diabetes Mellitus Type 1, Diabetes Mellitus Type 2 *Have you ever received a pneumonia vaccine?: No *Have you received a flu vaccine this season?: No Other Medical History: Reports: Arthritis, Other Laterality Cases: Right: Lumpectomy, Bilateral: Breast Biopsy, Carotid Endarterectomy Other Surgeries: Yes: Cancer Surgery, Colonoscopy, Other - *Social History Last grade of school completed: 4th or less Smoking Status: Never smoker Alcohol Intake: never Substance Use Type: denies use *Occupational Status:: disabled *Travel in the last 8 weeks: None Family Hx:: No significant family history Review of Systems - Review of Systems Review of systems:: unable to obtain Meds Home Medications Medication Instructions Recorded Confirmed Type anastrozole 1 mg tablet 1 mg PO DAILY 01/12/18 04/20/21 History Furosemide [Furosemide 20mg Tab*] 20 mg PO DAILY 04/20/21 04/20/21 History Metoprolol Tartrate [Lopressor 25 mg PO BID 04/20/21 04/20/21 History 25mg tablet] Allergies Allergy/AdvReac Type Severity Reaction Status Date / Time HAFSA Inhibitors Allergy Rash Verified 03/28/19 11:06 Exam Vital signs and Labs for Last 24 Hours: Temp Pulse Resp BP Pulse Ox 98.2 F 79 16 117/51 L 90 L 04/21/21 07:41 04/21/21 07:41 04/21/21 07:41 04/21/21 07:41 04/21/21 07:41 Laboratory Results - last 24 hr 04/20/21 15:02: WBC 7.0, RBC 5.11, Hgb 14.2, Hct 43.2, MCV 84.6, MCH 27.7, MCHC 32.7, RDW 13.8, Plt Count 187, MPV 8.8, Neut % (Auto) 87.8 H, Lymph % (Auto) 6.3 L, [place] % (Auto) 5.1, Eos % (Auto) 0.6, Baso % (Auto) 0.2, Neut # (Auto) 6.1, Lymph # (Auto) 0.4 L, [place] # (Auto) 0.4, Eos # (Auto) 0.0, Baso # (Auto) 0.0, Total Counted 100, Neutrophils % (Manual) 83 H, Lymphocytes % (Manual) 10, Monocytes % (Manual) 5, Basophils % (Manual) 2.0 H, Platelet Estimate Normal 04/20/21 15:02: Sodium 135 L, Potassium 3.8, Chloride 102, Carbon Dioxide 29, Anion Gap 7.8, BUN 30 H, Creatinine 0.50 L, Estimated Creat Clear 47, Estimated GFR 117, Est GFR ( Amer) 142, Glucose 108 H, Calcium 8.4, Total Bilirubin 1.1, AST 61 H, ALT 25, Alkaline Phosphatase 105, Troponin I 0.12 H, Total Protein 6.8, Albumin 4.2, Globulin 2.6, Albumin/Globulin Ratio 1.6 04/20/21 15:09: SARS-CoV-2 (PCR) Not detected, Influenza A Untype (PCR) Not detected, Influenza Type B (PCR) Not detected 04/20/21 15:38: Urine Color Yellow, Urine Appearance Clear, Urine pH 5.5, Ur Specific [place] >= 1.030, Urine Protein Negative, Urine Glucose (UA) Negative, Urine Ketones 1+, Urine Blood Negative, Urine Nitrate Negative, Urine Bilirubin Negative, Urine Urobilinogen 0.2, Ur Leukocyte Esterase Negative, Urine RBC None, Urine WBC None, Ur Squamous Epith Cells None, Urine Bacteria None 04/20/21 17:00: Troponin I 0.10 H 02/20/22 20:30: Troponin I 0.09 H 04/21/21 05:39: Sodium 133 L, Potassium 4.0, Chloride 104, Carbon Dioxide 27, Anion Gap 6
--- NOTE | 2021-04-21 09:22 | HMH.PHAINT ---
Home med rec
--- NOTE | 2021-04-21 09:48 | HMH.ORTHOCON ---
*Admission Date: 04/20/21 <Ava Corrigan 04/21/21 09:48> *Reason for consult:: Right medial tibial plateau fracture <Ava Corrigan 04/21/21 09:48> *History of present illness: Ms. Jernigan is an 86-year-old female admitted to the acute inpatient service yesterday 04/20/2021 from the [facility] ED after sustaining a fall at home. Her daughter is present at the bedside and is able to provide a history as the patient is not a reliable historian. Per her daughter, the patient fell at home yesterday and immediately complained of right hip/right knee pain. Her daughter states that she was able to get her back into a chair, but the patient was unable to walk due to right hip/knee pain. Evaluation in the emergency department revealed a possible right nondisplaced tibial plateau fracture. This morning the patient is lying comfortably in bed. She denies pain at rest but reports right knee pain with attempted movements of the right knee that is well controlled with pain medication. At baseline, she ambulates with a cane and lives in her own home, although she has family who frequently check in on her. She denies hip pain, back pain, dizziness, chest pain, shortness of breath, or distal tingling/numbness. Her past medical history is significant for breast cancer, hypertension, thyroid nodule, and dementia. She denies any other symptoms or concerns at this time. <Ava Corrigan 04/21/21 10:14> [facility] History Medical History: Reports:: Cancer, Hypertension Denies:: Diabetes Mellitus Type 1, Diabetes Mellitus Type 2 <Ava Corrigan 04/21/21 09:48> *Have you ever received a pneumonia vaccine?: No <Ava Corrigan 04/21/21 09:48> *Have you received a flu vaccine this season?: No <Ava Corrigan 04/21/21 09:48> Other Medical History: Reports: Arthritis, Other <Ava Corrigan 04/21/21 09:48> Laterality Cases: Right: Lumpectomy, Bilateral: Breast Biopsy, Carotid Endarterectomy <Ava Corrigan 04/21/21 09:48> Other Surgeries: Yes: Cancer Surgery, Colonoscopy, Other <Ava Corrigan 04/21/21 09:48> - *Social History Last grade of school completed: 4th or less <Ava Corrigan 04/21/21 09:48> Smoking Status: Never smoker <Ava Corrigan 04/21/21 09:48> Alcohol Intake: never <Ava Corrigan 04/21/21 09:48> Substance Use Type: denies use <Ava Corrigan 04/21/21 09:48> *Occupational Status:: disabled <Ava Corrigan 04/21/21 09:48> *Travel in the last 8 weeks: None <Ava Corrigan 04/21/21 09:48> Family Hx:: No significant family history <Ava Corrigan 04/21/21 09:48> Review of Systems - Review of Systems Review of systems:: unable to obtain <Ava Corrigan 04/21/21 10:05> Meds Home Medications Medication Instructions Recorded Confirmed Type anastrozole 1 mg tablet 1 mg PO DAILY 01/12/18 04/20/21 History Furosemide [Furosemide 20mg Tab*] 20 mg PO DAILY 04/20/21 04/20/21 History Metoprolol Tartrate [Lopressor 25 mg PO BID 04/20/21 04/20/21 History 25mg tablet] <John Marley - 04/21/21 12:49> Allergies Allergy/AdvReac Type Severity Reaction Status Date / Time HAFSA Inhibitors Allergy Rash Verified 03/28/19 11:06 <John Marley - 04/21/21 12:49> Exam Vital signs and Labs for Last 24 Hours: Temp Pulse Resp BP Pulse Ox 98.2 F 79 16 117/51 L 90 L 04/21/21 07:41 04/21/21 07:41 04/21/21 07:41 04/21/21 07:41 04/21/21 07:41 Laboratory Results - last 24 hr 04/20/21 15:02: WBC 7.0, RBC 5.11, Hgb 14.2, Hct 43.2, MCV 84.6, MCH 27.7, MCHC 32.7, RDW 13.8, Plt Count 187, MPV 8.8, Neut % (Auto) 87.8 H, Lymph % (Auto) 6.3 L, [place] % (Auto) 5.1, Eos % (Auto) 0.6, Baso % (Auto) 0.2, Neut # (Auto) 6.1, Lymph # (Auto) 0.4 L, [place] # (Auto) 0.4, Eos # (Auto) 0.0, Baso # (Auto) 0.0, Total Counted 100, Neutrophils % (Manual) 83 H, Lymphocytes % (Manual) 10, Monocytes % (Manual) 5, Basophils % (Manual) 2.0 H, Platelet Estimate Normal 04/20/21 15:
--- NOTE | 2021-04-21 14:13 | HMH.PTEV ---
Physical Therapy Evaluation Rehab PT IP Evaluation Start: 04/21/21 09:44 Freq: ONCE Status: Active Protocol: Document 04/21/21 14:06 CODIE (Rec: 04/21/21 14:13 CODIE [id number]) Subjective/History History History Pt is an 86 y/o female admitted thru ED for AMS ( daughter noted increased confusion, pt has dementia at baseline) and s/p fall at home . Pt suffered R tibial plateau fx - ortho consult requested PT eval and hinged knee brace limited to 0-90 degrees - pt is to be NWB on RLE Subjective Subjective Pt c/o pain w/ mvmnt of RLE - Rehab PT IP Eval Objective Appearance Patient Behavior Passive,Distractible,Confused Patient Orientation Name Difficulty following instructions severe Speech Pattern Clear,Soft-Spoken Ambulation Patient Able to Ambulate No Ambulation Observation IP General Gait Pattern Observation Decrease Weight Bear (R) Ambulation Distance (feet) 2 Ambulation Assistive Device None Ambulation Ability Maximum x 1 (75% assist),Total /Dependent (100%) Balance Ability to Arise Unable Sitting Balance Steady, safe Standing Balance Unsteady Dynamic Sitting Balance Ability Fair Dynamic Standing Balance Ability Zero Transfers Bed Transfer Ability Minimal x 1 (25% assist), Moderate x 1 (50% assist) Chair Transfer Ability Maximum x 1 (75% assist) Sit to Stand Bed Transfer Ability Maximum x 1 (75% assist),Total /Dependent (100%) Sit to Stand Chair Transfer Ability Maximum x 1 (75% assist),Total /Dependent (100%) Rehab PT IP prob,goals,plan Problems Date of Evaluation: 04/21/21 PT IP Problems Bed Mobility,Transfers Rehab Potential Rehab Potential Poor Equipment Needs Assistive Devices Rolling / Wheeled Walker Plan PT Intervention Plan Bed Mobility,Transfers,Gait, Balance,Self care,Safety, Therapeutic Exercise PT Plan Frequency BID Duration LOS Discharge Goals Bed Transfer Ability Minimal x 1 (25% assist), Moderate x 1 (50% assist) Sit to Stand Chair Transfer Ability Maximum x 1 (75% assist),Total /Dependent (100%) Discharge Plan PT Discharge Plan Pt
--- NOTE | 2021-04-21 14:22 | CARE MANAGER ---
Patient requires a hospital bed due to having a medical condition which requires positioning of the body in ways not feasible with an ordinary bed. Patient will require a standard w/c rather than a cane or walker r/t non-weight bearing status. Patient will require a bedside commode due to distance to bathroom in home.
--- NOTE | 2021-04-21 14:37 | SW/DCPLANNER ---
Addendum entered by Isidra Angulo 04/22/21 13:17: [facility] has stated they can accept this patient. Services for [facility]ci and PT/OT will begin later this week. Addendum entered by Isidra Angulo 04/22/21 13:02: [facility] is currently reviewing patient information. Addendum entered by Isidra Ravenna 04/22/21 10:06: [facility] phone number: [phone] Original Note: I spoke with this patients daughter (Yash) regarding discharge plans. I have explained options of returning home with home health services vs placement. Yash has expressed an interest in patient returning home with home health services ([facility] due to insurance). Yash has confirmed that patient will have family present 21/09. I will set up home health services at time of discharge. Yash has requested DME (wheelchair, BSC and hospital bed): info/order has been faxed to [facility]. Discharge date is unknown at this time.
--- NOTE | 2021-04-21 15:39 | CARE MANAGER ---
Order for hospital bed, w/c and bsc faxed to [facility]. Per Cecelia @ [facility], equipment is planned for delivery to home tomorrow.
--- NOTE | 2021-04-21 20:00 | CA_ITS ---
APPROVED REPORT EXAM: Comprehensive 2D, Doppler, and color-flow Echocardiogram Filter Changer: Shania Martinez CRT Ht: 5 ft 4 in Wt: 124lbs BSA: 1.60 BP: 151/61 mmHg Indications: Increased trop 2D Dimensions LVOT 1.74 cm (M/F) 1.5-2.5 LA Volume 49.00 mL LA Volume Index 30.60 mL/m2 (M/F) 16-34 M-Mode Dimensions RVDd 2.33 cm (0.9-2.6) LA Diam 3.28 cm (1.9-4.0) LVDd 4.63 cm (3.5-5.7) Ao Diam 3.35 cm (2.0-3.7) LVDs 3.29 cm (3.5-5.7) IVSd 1.51 cm (0.6-1.1) PWd 0.44 cm (0.6-1.1) EF (Teich) 55.70% FS 28.90% EDV (Teich) 98.80 mL TAPSE 1.54 (<1.7) ESV (Teich) 43.80 mL LV Diastology E Decel Time 150.00 (160-240 msec) E/A Ratio 0.89 MED E' 5.70 (< 7 cm/sec) MED A' 7.80 cm/s E'/MED E' Ratio 13.00 (>14) LAT E' 5.20 (<10 cm/sec) LAT A' 12.60 cm/s E/LAT E' Ratio 14.25 (>14) Aortic Valve AI PHT 295.00 ms AO Peak GR. 9.70 mmHg Mitral Valve MV E Max Jonathan. 74.00 (40-130 cm/s) MV A Velocity 83.00 (40-130 cm/s) E/A Ratio 0.89 MV Decel. Time 150.00 (160-240 ms) MV PHT 44.00 ms Pulmonary Valve PV Peak Velocity 155.00 (50-150 cm/s) Tricuspid Valve TR P. Velocity 366.00 cm/s RAP Estimate 10.00 mmHg RVSP 63.40 mmHg Left Ventricle Left atrium is mildly enlarged, left ventricle is normal size, mild concentric left ventricular hypertrophy, visually estimated ejection fraction 55% with no obvious regional wall motion abnormality, endocardial cells are poorly visualized. Diastolic parameters are inconclusive. Right Ventricle Right atrium and right ventricle are mildly enlarged with normal contractility. Aortic Valve Aortic valve is minimally thickened and fibrosed, there is no aortic stenosis, there is moderate aortic insufficiency. Mitral Valve Mitral valve leaflets are minimally thickened, there is mild mitral regurgitation. Tricuspid Valve Tricuspid grossly normal, there is mild tricuspid regurgitation, calculated right ventricular systolic pressure 53 mmHg. Pulmonic Valve Pulmonic valve is poorly visualized. Great Vessels Aortic root is normal size. Inferior vena cava is poorly visualized. Pericardium No significant pericardial effusion noted. Conclusion 1. Mildly enlarged left atrium, normal left ventricular size, mild concentric left ventricular hypertrophy, visually estimated ejection fraction 55% with no obvious regional wall motion abnormality, diastolic parameters are inconclusive. 2. Moderate aortic, mild mitral and tricuspid regurgitation, calculated right ventricular systolic pressure is 53 mmHg. 3. No significant pericardial effusion noted. 4. Inferior vena cava is poorly visualized. Electronically signed by : Sebastian Nath MD 04/21/2021 21:01:27
[2021-04-22] VITALS: PULSE 80
[2021-04-22 03:15] VITALS: BP 134/45; PULSE 67; RESP 18; TEMP 37.6
[2021-04-22 04:00] VITALS: PULSE 60
[2021-04-22 04:58] VITALS: BMI 20.9
[2021-04-22 08:00] VITALS: BP 144/52; PULSE 72; RESP 19; TEMP 36.3; O2SAT 91; O2SAT 94
[2021-04-22 08:01] VITALS: PULSE 100
--- NOTE | 2021-04-22 08:18 | HMH.PNCARD ---
Subjective Date: 04/22/21 Time: 08:19 Principal diagnosis: fall, possible syncope Interval history: 86-year-old white female sitting in bedside chair eating breakfast in no acute distress. Denies any chest pain, pressure or tightness. She does know she is in the hospital today but is still unable to give a complete date of or know what year it is. Echocardiogram shows preserved ejection fraction with no wall motion abnormalities. She does have moderate aortic regurgitation. Right ventricular systolic pressure is 53 mmHg. Exam Vital signs and Labs for Last 24 Hours: Temp Pulse Resp BP Pulse Ox 97.4 F L 72 19 144/52 H 94 L 04/22/21 08:00 04/22/21 08:00 04/22/21 08:00 04/22/21 08:00 04/22/21 08:00 I & O for Last 24 hours: Intake & Output 04/19/21 04/20/21 04/21/21 04/22/21 11:59 11:59 11:59 11:59 Intake Total 825 / 825 1620 / 1620 Output Total 1400 / 1400 375 / 375 Balance -575 / -575 1245 / 1245 Weight 127 lb 1.6 oz 125 lb 6.4 oz - *Routine Respiratory Exam Present: CTA bilaterally, diminished air movement - *Routine Cardiovascular Exam Present: RRR, murmur - *Routine Extremities Exam Present: edema. Absent: cyanosis, clubbing - *Routine Neurological Exam Present: alert Progress Note: A&P (1) Elevated troponin Status: Acute (2) Tibial plateau fracture Status: Deleted (3) Dementia Status: Acute (4) Breast mass Status: Acute (5) Fall Status: Acute (6) Moderate aortic regurgitation Status: Acute Assessment and Plan for All Diagnoses:: 1. Elevated troponins but with normal LVEF on echo. Conservative management per Dr. Foy. Will stop metoprolol because aortic regurgitation is the bigger issue in this patient. 2. Fall with nondisplaced tibial plateau fracture, conservative management per Ortho 3. Dementia, some improvement today. 4. Moderate aortic regurgitation, this is best treated by allowing a higher heart rate, therefore will stop metoprolol. If patient's heart rate does not increase then consider using low dose theophylline.
--- NOTE | 2021-04-22 08:51 | HMH.ACPN2 ---
Internal Medicine - PN: Subj *Date: 04/22/21 *Time: 08:55 Interval history: She states that she slept well and feels better. She denies pain and shortness of breath. She is enjoying eating her breakfast. She is more conversant today and knows that she is in the hospital. She has been seen by cardiology he will discontinue her metoprolol due to her moderate aortic insufficiency in order to increase her heart rate. Exam Vital signs and Labs for Last 24 Hours: Temp Pulse Resp BP Pulse Ox 97.4 F L 72 19 144/52 H 94 L 04/22/21 08:00 04/22/21 08:00 04/22/21 08:00 04/22/21 08:00 04/22/21 08:00 I & O for Last 24 hours: Intake & Output 04/19/21 04/20/21 04/21/21 04/22/21 11:59 11:59 11:59 11:59 Intake Total 825 / 825 1620 / 1620 Output Total 1400 / 1400 375 / 375 Balance -575 / -575 1245 / 1245 Weight 127 lb 1.6 oz 125 lb 6.4 oz - Constitutional no acute distress Comments: Sitting up in the chair eating her breakfast without any problems. - *Routine Respiratory Exam Present: CTA bilaterally (Anteriorly and posteriorly) - *Routine Cardiovascular Exam Present: RRR - *Routine Abdominal Exam Present: soft, normoactive bowel sounds. Absent: tenderness - *Routine Extremities Exam Absent: edema - *Routine Neurological Exam Present: alert (Oriented x1) Assessment and Plan (1) Elevated troponin Status: Acute Category: Medical Code(s): R77.8 - Other specified abnormalities of plasma proteins (2) Tibial plateau fracture Status: Deleted Qualifiers: Encounter type: initial encounter Fracture type: closed Laterality: right Qualified Code(s): S82.141A - Displaced bicondylar fracture of right tibia, initial encounter for closed fracture Category: Medical Code(s): S82.143A - Displaced bicondylar fracture of unspecified tibia, initial encounter for closed fracture (3) Dementia Status: Acute Category: Medical Code(s): F03.90 - Unspecified dementia without behavioral disturbance (4) Breast mass Status: Acute Qualifiers: Laterality: right Breast mass location: unspecified quadrant Qualified Code(s): N63.10 - Unspecified lump in the right breast, unspecified quadrant Category: Medical Code(s): N63.0 - Unspecified lump in unspecified breast (5) Fall Status: Acute Qualifiers: Encounter type: initial encounter Qualified Code(s): W19.XXXA - Unspecified fall, initial encounter Category: Medical Code(s): W19.XXXA - Unspecified fall, initial encounter (6) Moderate aortic regurgitation Status: Acute Category: Medical Code(s): I35.1 - Nonrheumatic aortic (valve) insufficiency - Assessment and plan all Dx Assessment and Plan for all problems:: See cardiology note. Family plans for patient to go home with home health.
--- NOTE | 2021-04-22 10:02 | PC.NURSE ---
ATTEMPTED TO CALL PT NEXT OF KIN TO INFORM THEM OF D/C. CALL CANNOT BE COMPLETED. UNABLE TO GET IN TOUCH WITH FAMILY. PT IS UNABLE TO RECALL ADDITIONAL PHONE NUMBERS
--- NOTE | 2021-04-22 11:14 | HMH.ORTHPN ---
Subjective Date: 04/22/21 Time: 08:45 Principal diagnosis: Right medial tibial plateau fracture Interval history: Ms. Jernigan is an 86-year-old female admitted to the acute inpatient service 04/20/2021 from the [facility] ED after sustaining a fall at home. Evaluation revealed a possible right nondisplaced tibial plateau fracture. This morning the patient is sitting comfortably in a chair at the bedside. No family is present at this time, but the patient is more conversational and alert today. She continues to report right knee pain that is well controlled with pain medication and rest. She states that she is eating and drinking well and denies any nausea or vomiting. She denies hip pain, back pain, dizziness, chest pain, shortness of breath, or distal tingling/numbness. Her past medical history is significant for breast cancer, hypertension, thyroid nodule, and dementia. She denies any other symptoms or concerns at this time. PN: Obj Ex Vital signs: Temp Pulse Resp BP Pulse Ox 97.4 F L 72 19 144/52 H 94 L 04/22/21 08:00 04/22/21 08:00 04/22/21 08:00 04/22/21 08:00 04/22/21 08:00 - Constitutional no acute distress, average body habitus, cooperative - Routine HEENT Exam Head: Present: normocephalic, atraumatic Eye: Present: EOMI, PERRL ENT: Present: mucous membranes moist - Routine Neck Exam Present: supple, full ROM, trachea midline. Absent: lymphadenopathy - Routine Respiratory Exam Absent: accessory muscle use, respiratory distress Comments: Symmetric chest movement, able to speak in complete sentences - Routine Cardiovascular Exam Present: RRR. Absent: JVD Comments: Normal peripheral pulses - Routine Abdominal Exam Present: soft. Absent: tenderness - Routine Extremities Exam Present: pulses intact, normal capillary refill. Absent: cyanosis, calf tenderness Comments: Upon examination of the right knee: There is a hinged ROM knee brace in place. The skin is intact. There is some ecchymosis present around the medial side of the knee, trace knee effusion noted. The medial compartment/joint line is tender to palpation. Attempted movements of the right knee are painful. Knee joint is ligamentously stable. Good muscle strength demonstrated upon examination. Thigh and calf are soft nontender; Homans' sign is negative. No clinical evidence of DVT noted. Posterior tibial pulse 1+; capillary refill is brisk. Sensation to light touch is grossly intact. Patient is actively mobilizing the ankle, foot, and toes. - Routine Skin Exam Present: intact, warm, normal turgor. Absent: erythema, jaundice - Routine Neurological Exam Present: alert, moving all extremities, normal speech. Absent: sensory deficit, motor deficit - Routine Psychiatric Exam Present: normal affect, cooperative - Urinary Catheter Management Cantu Cath placed during this visit: no Urethral indwelling: Yes Progress Note: A&P (1) Elevated troponin Status: Acute (2) Tibial plateau fracture Status: Deleted (3) Dementia Status: Acute (4) Breast mass Status: Acute (5) Fall Status: Acute (6) Moderate aortic regurgitation Status: Acute Assessment and Plan for All Diagnoses:: I have again discussed the clinical findings and diagnostic imaging with the patient. She is doing well from an orthopedic standpoint can be discharged when medically appropriate. She is being treated conservatively for her nondisplaced medial tibial plateau fracture in the form of a ROM hinged knee brace and nonweightbearing status on her right leg. ROM knee brace may be set to allow for 0-90 degrees of flexion and patient may ambulate nonweightbearing on the right side with the use of a walker. Toe-touch weightbearing on the right if needed for balance. Continue rest, ice, elevation, activity modification, and pain medication as needed. We will plan to see her in our office for her first follow-up appointment in
--- NOTE | 2021-04-22 21:33 | HMH.DCSUM ---
General - General Admission date:: 04/20/21 Discharge date: 04/22/21 HPI HPI: This 86-year-old white female was admitted through the emergency room. According to her daughter's report to the ER physician she had a fall today. There was an injury to the right knee and some bruising. Her daughter felt that she was not mentally the same as she usually is. In the emergency room her evaluations showed a possible nondisplaced tibial plateau fracture on the right. The main reason she was admitted however was that her troponin was slightly elevated. The patient has not had complaints of shortness of breath or chest pain. I spent some time talking to her this evening but she is not able to give a good history. She is not even able to tell me where she lives. When I took the bed clothes down to check her knee she was concerned that the people on the TV set could see her. The patient is awake this morning, but she is asking to see her mother. She obviously does not mentate well. Hospital Course Hospital Course: The patient's cervical spine CT showed a 2 mm retrolisthesis of C3 on C4 but no evidence of acute fracture. There was a nodule in the right lobe of the thyroid and radiology recommended an ultrasound. Her chest x-ray showed mild opacities in the right upper lobe in both bases and radiology recommended a CT of the chest. The CT showed a 3.5 x 2 cm spiculated mass in the soft tissue of the right breast worrisome for recurrent tumor. There were mild opacities in the right middle lobe and lingula and both lower lobes representing atelectasis versus pneumonia. The patient's head CT showed nothing acute. An x-ray of her right knee showed a possible tibial plateau fracture. A knee CT was therefore ordered and did show a tibial plateau fracture along with a suprapatellar joint effusion. Her troponins were also elevated, therefore she was admitted and cardiology as well as orthopedics were consulted. Cardiology saw the patient and ordered an echo. They recommended conservative care in light of the patient's dementia. Her echo showed an EF of 55% and she had an elevated right ventricular systolic pressure 53 mmHg. She also had moderate aortic regurgitation. Cardiology stopped her metoprolol to allow for higher heart rate due to her aortic regurgitation. They recommended conservative management. She was seen in consultation by Dr. Marley and he recommended conservative management as well for her tibial plateau fracture in the form of a range of motion hinged knee brace and nonweightbearing status. By 04/22/2021, the patient has slept well and felt better. She denied pain and shortness of breath and was eating breakfast. Her mental status had improved. She was stable to be discharged home with home health. Objective Vital signs: Temp Pulse Resp BP Pulse Ox 97.4 F L 100 H 19 144/52 H 91 L 04/22/21 08:00 04/22/21 08:01 04/22/21 08:00 04/22/21 08:00 04/22/21 08:00 Narrative: - Constitutional no acute distress - *Routine HEENT Exam Head: Present: normocephalic Eye: Present: EOMI, PERRL ENT: Present: mucous membranes moist - *Routine Neck Exam Present: supple. Absent: lymphadenopathy - *Routine Respiratory Exam Present: CTA bilaterally - *Routine Cardiovascular Exam Present: RRR - *Routine Abdominal Exam Present: soft, normoactive bowel sounds. Absent: tenderness - *Routine Rectal Exam Rectal:: deferred - *Routine Genitalia Exam Genitalia:: deferred - *Routine Extremities Exam Present: edema (Trace to 1+. Ecchymosis and tenderness of the tibial plateau area of the right knee.). Absent: cyanosis, clubbing - *Routine Skin Exam Present: warm. Absent: rash - *Routine Neurological Exam Present: altered mental status (But I am not aware of her baseline.). Absent: alert (Awake but not oriented.) DS: Diagnosis - Discharge Diagnosis (1) Elevated troponin Status: Acute (2) Tibial plateau frac
== END 2021-04-22 11:30 | disposition home health service (06) ==
LOC: ER 17:35 → 2ND 17:54
PROVIDERS: Admitting Provider Family Medicine; Emergency Provider Emergency Medicine; PCP Family Medicine; Visit Provider Family Medicine
DX: S82.141A Displaced bicondylar fracture of right tibia, initial encounter for closed fracture (principal); W19.XXXA Unspecified fall, initial encounter; F03.90 Unspecified dementia, unspecified severity, without behavioral disturbance, psychotic disturbance, mood disturbance, and anxiety; N63.10 Unspecified lump in the right breast, unspecified quadrant; I10 Essential (primary) hypertension; C50.911 Malignant neoplasm of unspecified site of right female breast; I35.1 Nonrheumatic aortic (valve) insufficiency; Z20.822 Contact with and (suspected) exposure to COVID-19
CPT/HCPCS: G0378; 36415; 70450; 71045; 71250; 72125; 73502; 73562; 73700; 80048; 80053; 81001; 84484; 85007; 85025; 93005; 93306; 96374; 96375; 97110; 97163; 97530; 97760; 99284; C9803; J2405; U0003; U0005

== ENCOUNTER 2021-06-22 14:09 | Emergency (ER) | payer OTHER, SELFPAY ==
[2021-06-22] VITALS (7 sets, daily range): BP systolic 132–176; BP diastolic 67–92; PULSE 78–106; RESP 15–20; TEMP 36.6; O2SAT 95–98; BMI 25.0
--- NOTE | 2021-06-22 14:38 | CT_ITS ---
PROCEDURE INFORMATION: Exam: CT Cervical Spine Without Contrast Exam date and time: 06/22/2021 2:54 PM Age: 86 years old Clinical indication: Injury or trauma; Fall; Blunt trauma TECHNIQUE: Imaging protocol: Computed tomography images of the cervical spine without contrast. Radiation optimization: All CT scans at this facility use at least one of these dose optimization techniques: automated exposure control; mA and/or kV adjustment per patient size (includes targeted exams where dose is matched to clinical indication); or iterative reconstruction. COMPARISON: CT CERVICAL SPINE WO CON 04/20/2021 2:09 PM FINDINGS: Bones/joints: As described on the report for the CT of the maxillofacial structures, there are few mm retrolisthesis of C3 in relation to C4. There is no evidence of fracture. Diffuse bone demineralization. Discs/Spinal canal/Neural foramina: Diffuse degenerative disc and facet disease result in multilevel central and foraminal stenosis within the cervical spine. Mild cortical atrophy of the brain parenchyma. Mastoid air cells: Small amount of fluid in the left mastoid air cells. Thyroid: Right lobe thyroid nodule measures 10 x 11 mm. Follow-up with thyroid ultrasound. Lungs: Scarring in the lung apices. 5 mm nodule posterior right apex. This was not visualized on a prior CT of the chest June 03, 2016. Dedicated CT of the chest recommended. Vasculature: Calcifications of the regional arteries. Soft tissues: Unremarkable. IMPRESSION: As described on the report for the CT of the maxillofacial structures, there is grade 1 retrolisthesis of C3 in relation to C4. There is no evidence of fracture. 5 mm nodule posterior right apex. This was not visualized on a prior CT of the chest June 03, 2016. Dedicated CT of the chest recommended. Diffuse degenerative disc and facet disease result in multilevel central and foraminal stenosis within the cervical spine. Right lobe thyroid nodule measures 10 x 11 mm. Follow-up with thyroid ultrasound. COMMENTS: Consistent with the [employer]'s Incidental Findings Committee white paper (J Am Yamila Radiol 2015): In patients aged 35 years and older with an incidental thyroid nodule equal to or greater than 1.[address], MRI or extrathyroidal US, further evaluation with dedicated thyroid US is recommended for patients with normal life expectancy and without comorbidities. For smaller nodules without suspicious features, no further evaluation or follow up is recommended.
--- NOTE | 2021-06-22 14:38 | CT_ITS ---
PROCEDURE INFORMATION: Exam: CT Head Without Contrast Exam date and time: 06/22/2021 2:49 PM Age: 86 years old Clinical indication: Injury or trauma; Fall; Blunt trauma (contusions or hematomas); Consciousness not specified TECHNIQUE: Imaging protocol: Computed tomography of the head without contrast. Radiation optimization: All CT scans at this facility use at least one of these dose optimization techniques: automated exposure control; mA and/or kV adjustment per patient size (includes targeted exams where dose is matched to clinical indication); or iterative reconstruction. COMPARISON: CT HEAD/BRAIN WO CON 04/20/2021 2:09 PM FINDINGS: Brain: Patchy hypoattenuation in the periventricular deep white matter bilaterally. Cerebral ventricles: Enlargement of ventricles, sulci and cisterns bilaterally. Paranasal sinuses: Mucosal thickening within paranasal sinuses but no fluid levels are evident. Mastoid air cells: Small amount of fluid in left mastoid air cells. Vasculature: Calcification of carotid siphons and vertebrobasilar arterial systems. Bones/joints: Unremarkable. No acute fracture. Soft tissues: Unremarkable. IMPRESSION: No evidence for acute intracranial hemorrhage, midline shift or mass effect. Cortical atrophy and chronic periventricular microangiopathy. Left mastoid effusion.
--- NOTE | 2021-06-22 14:39 | XR_ITS ---
PROCEDURE INFORMATION: Exam: XR Left Knee Exam date and time: 06/22/2021 2:57 PM Age: 86 years old Clinical indication: Injury or trauma; Fall; Blunt trauma; Knee; Left TECHNIQUE: Imaging protocol: XR Left knee. Views: 3 views. COMPARISON: No relevant prior studies available. FINDINGS: Bones/joints: Bones are osteopenic. There are mild degenerative changes of the knee joint, predominantly involving the medial joint compartment. There is no evidence of acute fracture. There is no evidence of joint malalignment or dislocation. Small joint effusion. Soft tissues: Normal. IMPRESSION: 1. Bones are osteopenic. 2. There are mild degenerative changes of the knee joint, predominantly involving the medial joint compartment. 3. No evidence of acute fracture. 4. No evidence of acute dislocation. 5. Small joint effusion.
--- NOTE | 2021-06-22 14:39 | XR_ITS ---
PROCEDURE INFORMATION: Exam: XR Right Forearm Exam date and time: 06/22/2021 2:57 PM Age: 86 years old Clinical indication: Injury or trauma; Fall; Blunt trauma (contusions or hematomas); Arm, lower; Right TECHNIQUE: Imaging protocol: XR Right forearm. Views: 2 views. COMPARISON: No relevant prior studies available. FINDINGS: Bones/joints: There appears to be slight buckling of the distal dorsal radius on the lateral view without displaced fracture. Diffuse bone demineralization. Osteophytosis and eburnation of the articulating surfaces. Soft tissues: Normal. IMPRESSION: Torus fracture of the distal dorsal radius.
--- NOTE | 2021-06-22 14:39 | XR_ITS ---
PROCEDURE INFORMATION: Exam: XR Pelvis Exam date and time: 06/22/2021 2:57 PM Age: 86 years old Clinical indication: Injury or trauma; Fall; Blunt trauma (contusions or hematomas); Bilateral; Pelvic region TECHNIQUE: Imaging protocol: XR pelvis. Views: 1 or 2 view. COMPARISON: CR XR HIP RT 2-3V W/PELVIS 04/20/2021 2:17 PM FINDINGS: Bones/joints: Lucencies overlying the right symphysis pubis and superior ramus are suspicious for nondisplaced fractures in this osteopenic/osteoporotic patient. Diffuse bone demineralization is present. Osteophytosis and eburnation of the sacroiliac and acetabular articulating surfaces. Degenerative spondylosis, rotoscoliosis and facet arthropathy within the spine. Soft tissues: Unremarkable. Organs: Calcifications overlying the pelvic soft tissues are probably uterine fibroids. IMPRESSION: Lucencies overlying the right symphysis pubis and superior ramus are suspicious for nondisplaced fractures in this osteopenic/osteoporotic patient. 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 Calcifications overlying the pelvic soft tissues are probably uterine fibroids.
--- NOTE | 2021-06-22 14:39 | XR_ITS ---
PROCEDURE INFORMATION: Exam: XR Chest Exam date and time: 06/22/2021 2:57 PM Age: 86 years old Clinical indication: Injury or trauma; Fall; Blunt trauma (contusions or hematomas) TECHNIQUE: Imaging protocol: XR of the chest. Views: 4 or more views. COMPARISON: CT CHEST WO CON 04/20/2021 3:44 PM FINDINGS: Tubes, catheters and devices: Surgical clips project over the right lower hemithorax. Lungs: Atelectatic changes noted within both lung bases. Pleural spaces: There is no evidence of pneumothorax. There are no pleural effusions present. Heart/Mediastinum: Unremarkable. No cardiomegaly. Vasculature: The vasculature demonstrates diffuse mild atherosclerotic calcification. Bones/joints: There is widening of the acromial humeral distance on the right. This may be consistent with subluxation. Further evaluation is recommended. Bones are osteopenic. Scoliotic curvature of the thoracolumbar spine. The thoracic spine demonstrates mild degenerative changes at multiple levels. IMPRESSION: 1. There is widening of the acromial humeral distance on the right. This may be consistent with subluxation. Further evaluation is recommended. 2. Atelectatic changes noted within both lung bases.
--- NOTE | 2021-06-22 14:39 | XR_ITS ---
PROCEDURE INFORMATION: Exam: XR Right Knee Exam date and time: 06/22/2021 2:57 PM Age: 86 years old Clinical indication: Injury or trauma; Fall; Blunt trauma; Knee; Right TECHNIQUE: Imaging protocol: XR Right knee. Views: 3 views. COMPARISON: CT KNEE RT WO CON 04/20/2021 3:50 PM FINDINGS: Bones/joints: There are mild degenerative changes of the knee joint, predominantly involving the medial joint compartment. Bones are osteopenic. There is no evidence of acute fracture. Soft tissues: Normal. IMPRESSION: 1. There are mild degenerative changes of the knee joint, predominantly involving the medial joint compartment. 2. Bones are osteopenic. 3. No evidence of acute fracture.
--- NOTE | 2021-06-22 14:39 | XR_ITS ---
PROCEDURE INFORMATION: Exam: XR Right Humerus Exam date and time: 06/22/2021 2:57 PM Age: 86 years old Clinical indication: Injury or trauma; Fall; Blunt trauma (contusions or hematomas); Arm, upper; Right TECHNIQUE: Imaging protocol: XR Right humerus. Views: 2 or more views. COMPARISON: CT CERVICAL SPINE WO CON 06/22/2021 2:54 PM FINDINGS: Bones/joints: There appears to be subluxation/dislocation of the glenohumeral joint. Further evaluation of the shoulder is recommended. There is no evidence of acute fracture. Soft tissues: Mild soft tissue swelling. IMPRESSION: 1. There appears to be subluxation/dislocation of the glenohumeral joint. Further evaluation of the shoulder is recommended. 2. No evidence of acute fracture. 3. Mild soft tissue swelling.
--- NOTE | 2021-06-22 14:41 | [facility].EDGENADL ---
ED Disposition Clinical Impression: Facial contusion Qualifiers: Encounter type: initial encounter Qualified Code(s): S00.83XA - Contusion of other part of head, initial encounter Facial abrasion Qualifiers: Encounter type: initial encounter Qualified Code(s): S00.81XA - Abrasion of other part of head, initial encounter Knee abrasion Qualifiers: Encounter type: initial encounter Laterality: unspecified laterality Qualified Code(s): S80.219A - Abrasion, unspecified knee, initial encounter Arm injury Qualifiers: Encounter type: initial encounter Laterality: right Qualified Code(s): S49.91XA - Unspecified injury of right shoulder and upper arm, initial encounter Disposition: Home, Self-Care Condition on Discharge: Good Instructions: How to Prevent Falls, DI for Closed Head Injury Additional Instructions: Clean abrasions with soap and water daily. Apply Neosporin ointment. Ice as needed to sore areas to reduce pain and swelling. Tylenol for pain. Additional instructions for HEAD INJURY: Return immediately if severe headache, vomiting, problems with vision or speech, numbness or weakness of the extremities, or severe neck pain. Referrals: Provider,Referral, MD [Primary Care Provider] - - Critical Care Critical Care Time: No Attestation: On 06/22/21, the high probability of a clinically significant, sudden or life threatening deterioration of the following system(s) required my full and direct attention, intervention and personal management. The time I documented below is in addition to time spent performing reported procedures but includes the following listed in this critical care notation. Medical Decision Making - Josh Inquiry Pt receiving controlled substance: No Vital Signs: 06/22/21 14:10 06/22/21 14:30 06/22/21 15:25 Temperature 98 F Temperature Source Oral Pulse Rate 102 H 92 H Pulse Rate [Radial] 106 H Respiratory Rate 20 16 16 Blood Pressure 137/71 151/82 H Blood Pressure [Right Arm] 144/71 H Blood Pressure Mean 91 103 Blood Pressure Mean [Right Arm] 95 Blood Pressure Position [Right Arm] Sitting 02 Sat by Pulse Oximetry 98 97 95 Oxygen Delivery Method Room Air 06/22/21 15:30 06/22/21 16:00 06/22/21 16:31 Temperature Temperature Source Pulse Rate 96 H 92 H 101 H Pulse Rate [Radial] Respiratory Rate 16 15 15 Blood Pressure 150/92 H 158/67 H 176/83 H Blood Pressure [Right Arm] Blood Pressure Mean 111 97 114 Blood Pressure Mean [Right Arm] Blood Pressure Position [Right Arm] 02 Sat by Pulse Oximetry 96 95 95 Oxygen Delivery Method Orders (Tests/Meds): ORDERS Category Date Time Status XR forearm RT 2V Stat Exams 06/22/21 14:39 Taken XR pelvis 1-2V Stat Exams 06/22/21 14:39 Taken - Radiology Data #1 Image(s): Chest, Humerus, Forearm, Pelvis, Knee (bilateral) Image Reviewed: Yes I reviewed the patient's radiology image Preliminary Findings: Normal/NAD (Chronic degenerative findings without fractures or dislocations. Chest x-ray shows atelectasis or scarring right base.) - CT Data CT Scan: Head, C-Spine, Other (facial, shoulder) Time Received: 16:[address] Reviewed: Yes: I have viewed the radiologist's interpretation Findings Narrative: PROCEDURE INFORMATION: Exam: CT Maxillofacial Without Contrast Exam date and time: 06/22/2021 2:51 PM Age: 86 years old Clinical indication: Injury or trauma; Fall; Blunt trauma (contusions or hematomas); Forehead TECHNIQUE: Imaging protocol: Computed tomography images of the face without contrast. Radiation optimization: All CT scans at this facility use at least one of these dose optimization techniques: automated exposure control; mA and/or kV adjustment per patient size (includes targeted exams where dose is matched to clinical indication); or iterative reconstruction. COMPARISON: CT HEAD/BRAIN WO CON 06/22/2021 2:49 PM FINDINGS: Orbital cavities: Or
--- NOTE | 2021-06-22 14:42 | CT_ITS ---
PROCEDURE INFORMATION: Exam: CT Maxillofacial Without Contrast Exam date and time: 06/22/2021 2:51 PM Age: 86 years old Clinical indication: Injury or trauma; Fall; Blunt trauma (contusions or hematomas); Forehead TECHNIQUE: Imaging protocol: Computed tomography images of the face without contrast. Radiation optimization: All CT scans at this facility use at least one of these dose optimization techniques: automated exposure control; mA and/or kV adjustment per patient size (includes targeted exams where dose is matched to clinical indication); or iterative reconstruction. COMPARISON: CT HEAD/BRAIN WO CON 06/22/2021 2:49 PM FINDINGS: Orbital cavities: Orbits are normal. Globes are unremarkable. Bones/joints: There are a few mm retrolisthesis of C3 in relation to C4. This will be discussed in detail in the report for the CT of the cervical spine obtained at the same time. Diffuse bone demineralization. Paranasal sinuses: Mucosal thickening within paranasal sinuses. No fluid levels are evident. Mastoid air cells: The the small amount of fluid in the left mastoid air cells. Soft tissues: Unremarkable. Vasculature: Calcifications of the regional arteries. Ventricles: No evidence of acute intracranial hemorrhage, midline shift. There is enlargement of the ventricles, sulci and cisterns bilaterally. Other findings: Patchy hypoattenuation in the periventricular deep white matter bilaterally. IMPRESSION: Grade 1 retrolisthesis of C3 in relation to C4. This will be discussed in detail in the report for the CT of the cervical spine obtained at the same time. Mucosal thickening within paranasal sinuses. No fluid levels are evident. 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
--- NOTE | 2021-06-22 16:52 | XR_ITS ---
PROCEDURE INFORMATION: Exam: XR Right Shoulder Exam date and time: 06/22/2021 4:54 PM Age: 86 years old Clinical indication: Injury or trauma; Fall; Blunt trauma (contusions or hematomas); Shoulder; Right; Patient HX: Bedfast patient allegedly fell at long term. TECHNIQUE: Imaging protocol: XR Right shoulder. Views: 2 or more views. COMPARISON: CR XR HUMERUS RT 06/22/2021 2:57 PM FINDINGS: Bones/joints: Anterior and inferior subluxation of the humeral head noted. Bones are osteopenic. There is no evidence of acute fracture. Soft tissues: Normal. IMPRESSION: 1. Anterior and inferior subluxation of the humeral head noted. 2. Bones are osteopenic. 3. No evidence of acute fracture.
--- NOTE | 2021-06-22 17:04 | CT_ITS ---
PROCEDURE INFORMATION: Exam: CT Right Upper Extremity Without Contrast, Shoulder Exam date and time: 06/22/2021 5:25 PM Age: 86 years old Clinical indication: Injury or trauma; Fall; Blunt trauma (contusions or hematomas); Shoulder; Right; Injury date: 06/22/21; Additional info: Fall at retirement TECHNIQUE: Imaging protocol: CT of the Right upper extremity without contrast was performed. Exam focused on the shoulder. Radiation optimization: All CT scans at this facility use at least one of these dose optimization techniques: automated exposure control; mA and/or kV adjustment per patient size (includes targeted exams where dose is matched to clinical indication); or iterative reconstruction. COMPARISON: CR XR SHOULDER RT MIN 2V 06/22/2021 4:54 PM FINDINGS: Bones/joints: Diffuse bone demineralization. Degenerative spondylosis and rotoscoliosis of the thoracic spine. Osteophytosis and eburnation of the acromioclavicular and to a lesser extent glenohumeral articulating surfaces. Remote rib fractures. 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 Lungs: Diffuse interstitial thickening and subpleural honeycombing with scarring of the right lung apex. This patient did have interstitial disease on a prior CT of chest June 03, 2016. Scattered calcified granulomas within the right lung parenchyma. IMPRESSION: No evidence of acute fracture or dislocation is identified on CT of the right shoulder. Diffuse interstitial thickening and subpleural honeycombing with scarring of the right lung apex. This patient did have interstitial disease on a prior CT of chest June 03, 2016. Osteopenia/osteoporosis. Degenerative spondylosis and rotoscoliosis of the thoracic spine. Osteoarthritis. 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
== END 2021-06-22 19:02 | disposition home or self-care (01) ==
PROVIDERS: Emergency Provider Emergency Medicine
DX: S00.83XA Contusion of other part of head, initial encounter (principal); S00.81XA Abrasion of other part of head, initial encounter; S80.219A Abrasion, unspecified knee, initial encounter; S49.91XA Unspecified injury of right shoulder and upper arm, initial encounter; W22.09XA Striking against other stationary object, initial encounter; Y92.009 Unspecified place in unspecified non-institutional (private) residence as the place of occurrence of the external cause; C34.90 Malignant neoplasm of unspecified part of unspecified bronchus or lung; F03.90 Unspecified dementia, unspecified severity, without behavioral disturbance, psychotic disturbance, mood disturbance, and anxiety; I10 Essential (primary) hypertension
CPT/HCPCS: 70450; 70486; 71045; 72125; 72170; 73030; 73060; 73090; 73200; 73562; 99284